=== PATIENT | female | born 1980 | race Caucasian/White ===

== ENCOUNTER 2022-02-07 12:53 | Emergency (ER) | payer MEDICAID, SELFPAY ==
--- NOTE | ~2022-02-07 | CT_ITS ---
EXAMINATION: CT facial bones w con DATE: 02/07/2022 14:18 INDICATION: Dental abscess, recently drained TECHNIQUE: Computed tomography (CT) of the facial bones and maxillofacial region was performed withou t intravenous contrast. Automated exposure control and iterative reconstruction technique were employ ed. Exam dose: 507.75 mGy-cm total exam DLP. COMPARISON: None. FINDINGS: Number 30 tooth (posterior right mandible) is absent. There is mild mucoperiosteal thickening of the left maxillary sinus and some soft tissue thickening o f the ethmoid air cells. Right nasal antral window and partial right ethmoidectomy. Minimal mucoperiosteal thickening of the right maxillary sinus. There is moderate mucoperiosteal thickening of both sphenoid sinuses. The mastoid air cells are normally developed and aerated bilaterally. The frontozygomatic sutures, orbital rims, orbital khan, zygomatic arches and remainder of the facia l bones are intact. Normal alignment at the temporomandibular joints. No mandibular fracture. IMPRESSION: Status post extraction of #r 30 tooth Status post right nasal antral windows and partial right ethmoidectomy Mildly compressed thickening of the left maxillary sinus, minimal mucoperiosteal thickening of right maxillary sinus, some soft tissue thickening of the ethmoid air cells and moderate bilateral sphenoid sinus mucoperiosteal thickening Reviewed, dictated and finalized at [facility]. Reviewed, dictated and finalized at [facility]. IMPRESSION: Status post extraction of #r 30 tooth Status post right nasal antral windows and partial right ethmoidectomy Mildly compressed thickening of the left maxillary sinus, minimal mucoperiostea l thickening of right maxillary sinus, some soft tissue thickening of the ethmo id air cells and moderate bilateral sphenoid sinus mucoperiosteal thickening
[2022-02-07 12:55] VITALS: BP 127/89; PULSE 98; RESP 18; TEMP 36.4; O2SAT 97
[2022-02-07 13:45] LABS: Basophils Absolute Auto 0.1 K/mm3 (0.0-0.1); Basophils Percent Auto 0.6 % (0.2-1.2); Eosinophils Absolute Auto 0.4 K/mm3 (0-0.3); Eosinophils Percent Auto 4.5 % (0-4.4); Hemoglobin 13.3 g/dL (12.0-15.0); Immature Granulocyte Absolute 0.05 K/mm3 (0.00-0.031); Immature Granulocyte Percent A 0.6 % (0-0.5); Lymphocytes Absolute Auto 1.58 K/mm3 (0.9-3.2); Lymphocytes Percent Auto 18.7 % (18.3-44.2); Mean Corpuscular HGB Conc 33.3 g/dl (32-36); Mean Corpuscular Hemoglobin 32.4 pg (26-34); Mean Corpuscular Volume 97.6 fl (80-100); Monocytes Absolute Auto 0.8 K/mm3 (0.1-0.6); Monocytes Percent Auto 9.3 % (2.6-8.5); Neutrophils Absolute Auto 5.6 K/mm3 (1.3-6.7); Neutrophils Percent Auto 66.3 % (45.5-73.1); Platelet Count Result 297 k/mm3 (150-375); Red Cell Distribution Width 12.7 % (11.5-14.5); White Blood Count 8.5 K/mm3 (4.5-10.0)
[2022-02-07 13:55] LABS: Lactic Acid Reflex 0.6 mmol/L (0.7-2.1)
[2022-02-07 13:59] LABS: Alanine Aminotransferase 27 U/L (4-35); Alkaline Phosphatase 58 U/L (38-126); Anion Gap 8 mmol/L (8-16); Aspartate Amino Transferase 48 U/L (14-36); Bilirubin,Total 0.5 mg/dL (0.2-1.3); Blood Urea Nitrogen 14 mg/dL (7-17); Calcium 8.4 mg/dL (8.4-10.2); Carbon Dioxide 23 mmol/L (22-30); Chloride 102 mmol/L (98-107); Estimated CRCL calculation 100 ml/min; Estimated Glomerular Filt Rate > 60; Glucose 101 mg/dL (65-110); Potassium 4.4 mmol/L (3.4-5.0); Sodium 133 mmol/L (137-145)
[2022-02-07] MEDS: MORPHINE SULFATE (*CRX) 4 MG/ML INJ IV PUSH (15:32)
[2022-02-07] MEDS: ONDANSETRON INJ 4 MG/2 ML VIAL IV PUSH (15:32)
--- NOTE | 2022-02-07 15:33 | ED.DENTAL ---
HPI - Dental/Oral General Chief complaint: Dental/Oral Stated complaint: sent by dentist Time Seen by Provider: 02/07/22 13:06 Source: patient and family Mode of arrival: ambulatory Limitations: no limitations History of Present Illness HPI Narrative: 41-year-old with history of dental extraction approximately 9 days ago here with complaints of dental pain . Patient states that she is traveling from [facility] on her way she had intense dental pain, stopped in one of the dental clinics had tooth extracted. Patient states that his she has been dealing with viral bronchitis while she was coughing her filling fell out. She has seen the dentist again who recommended to start on Zithromax. She is presently taking Zithromax and [place] for pain, however since this morning pain has been quite intense and also noticed swelling in the jaw . she denies any fever or chills. She states that every time she takes a deep breath she gets intense pain in the jaw. Onset (ago): day(s) (9) Duration: constant Severity: moderate Relieving factors: nothing Exacerbating factors: nothing Context: other (dental exraction) Treatment prior to arrival: none Related Data Allergies Allergy/AdvReac Type Severity Reaction Status Date / Time Penicillins Allergy Hives Verified 02/07/22 13:43 diphenhydramine AdvReac Irritable Verified 02/07/22 13:43 [From Benadryl] metoclopramide [From Reglan] AdvReac Palpitation Verified 02/07/22 13:43 s prochlorperazine AdvReac Palpitation Verified 02/07/22 13:43 [From Compazine] s Review of Systems Review of Systems: All systems reviewed & are unremarkable except as noted in HPI and below Constitutional: Constitutional: Reports no additional constitutional complaints Eyes: Eyes: Reports no additional eye complaints ENT: Reports system reviewed and no additional complaints, except as documented Cardiovascular: Cardiovascular: Reports no additional cardiovascular complaints Respiratory: Respiratory: Reports no additional respiratory complaints Gastrointestinal: Gastrointestinal: Reports no additional gastrointestinal complaints Musculoskeletal: Musculoskeletal: Reports no additional musculoskeletal complaints Neurologic: Reports system reviewed and no additional complaints, except as documented Endocrine: Endocrine: Reports no additional endocrine complaints Exam Narrative: GENERAL: Well-appearing, well-nourished, and in no acute distress. HEAD: Normocephalic, atraumatic. EYES: PERRLA and EOMI. ENT: Nares clear, no rhinorrhea or epistaxis. Mucous membranes moist. Patient#30 socket looks normal,no sign of infection.Mild STS swelling in the jaw NECK: Supple. CHEST: Clear to auscultation. No respiratory distress. HEART: Regular rate and rhythm. No murmur heard. Normal peripheral pulses. EXTREMITIES: Normal range of motion. No edema. SKIN: Warm, dry, no rash. NEURO: No focal deficits. Alert and oriented x3. PSYCH: Normal mood and affect. Course Course Emergency Course: Patient was given IV morphine and Zofran for pain control. CT of the face with contrast showed no evidence of any dental abscess. Advised patient to take clindamycin as prescribed and [place] for pain. Recommended her to follow-up with her dentist as scheduled. Vital Signs Vital signs: Vital Signs Temperature 36.4 C L 02/07/22 12:55 Pulse Rate 98 02/07/22 12:55 Respiratory Rate 18 02/07/22 12:55 Blood Pressure 127/89 02/07/22 12:55 Pulse Oximetry 97 02/07/22 12:55 Temperature 36.4 C L 02/07/22 12:55 Pulse Rate 98 02/07/22 12:55 Respiratory Rate 18 02/07/22 12:55 Blood Pressure 127/89 02/07/22 12:55 Pulse Oximetry 97 02/07/22 12:55 MDM - Dental/Oral Lab Data Result diagrams: 02/07/22 13:35 02/07/22 13:35 Labs: Lab Results 02/07/22 02/07/22 02/07/22 Range/Units 13:35 13:35 13:35 WBC 8.5 (4.5-10.0) K/mm3 RBC 4.10 L (4.2-5.4) M/mm3
== END 2022-02-07 15:55 | disposition home or self-care (01) ==
PROVIDERS: Emergency Provider Family Medicine
DX: K08.89 Other specified disorders of teeth and supporting structures (principal)
CPT/HCPCS: 36415; 70487; 80053; 83605; 85025; 96374; 96375; 99284; J2270; J2405; Q9967